=== PATIENT | male | born 1990 | race Caucasian/White ===

== ENCOUNTER 2019-03-28 11:30 | Inpatient (IN) | payer OTHER ==
[~2019-03-28] VITALS: Ht 185.4 cm; Wt 176.4 kg
[2019-03-28] MEDS ORDERED: NS(*) 0.9% 1000 ML BAG 1,000 ML IV ONE (11:32)
[2019-03-28] MEDS ORDERED: DIPHTH/TETANUS/ACEL. PERTUSSIS IM ONE (11:35)
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
[2019-03-28 12:10] LABS: PLATELET COUNT, AUTOMATED 323 K/uL (150-450)
[2019-03-28] MEDS ORDERED: MORPHINE 4 MG/ML SDV IVP ONE ×3 (12:10→14:40)
[2019-03-28 12:20] LABS: INR 1.05
--- NOTE | 2019-03-28 15:28 | RADIOLOGY IMAGING REPORT ---
FACILITY: [facility] [place] PATIENT NAME: Fam Navarro : 1990 MR: [id number] V: [id number] EXAM DATE: ORDERING PHYSICIAN: RICCI AARON TECHNOLOGIST: Location: [facility] Patient: Fam Navarro : 1990 Visit/Account:[id number] Date of Sevice: 03/28/2019 C-SPINE W/O CONTRAST HISTORY: Trauma COMPARISON STUDIES: none TECHNIQUE: Axial images were obtained from the skull base through the upper thoracic spine without i ntravenous contrast. Coronal and sagittal reformatted images were obtained from the axial source data . One of the following dose optimization techniques was utilized in the performance of this exam: aut omated exposure control; adjustment of the mA and/or kv according to patient size; or use of iterativ e reconstruction technique. Specific details can be referenced in the facility's radiology CT exam op erational policy. FINDINGS: Pre-vertebral soft tissues: Negative Fracture/alignment: negative Vertebral bodies: Negative Posterior elements: Negative Disc Spaces: Negative Visualized soft tissues anterior neck: Negative Visualized lung / mediastinum: Negative Other findings: None significant IMPRESSION: 1. Negative for acute fracture or spondylolisthesis. Report Dictated By: Benito Tang MD at 03/28/2019 1:17 PM Report E-Signed By: Benito Tang MD at 03/28/2019 1:19 PM WSN:[id number]
--- NOTE | 2019-03-28 15:29 | RADIOLOGY IMAGING REPORT ---
FACILITY: [facility] [place] PATIENT NAME: Fam Navarro : 1990 MR: [id number] V: [id number] EXAM DATE: ORDERING PHYSICIAN: RICCI AARON TECHNOLOGIST: Location: [facility] [place] Patient: Fam Navarro : 1990 Visit/Account:[id number] Date of Sevice: 03/28/2019 CHEST/AB/PELV W/CONTRAST, L-SPINE W CONTRAST, T-SPINE W CONTRAST HISTORY: Trauma TECHNIQUE: CT imaging was obtained through the chest, abdomen and pelvis with intravenous contrast. 2-D axial, coronal and sagittal small [id number] bone reformatted images were obtained through the thoracic spine and lumbar spine. One of the following dose optimization techniques was utilized in t he performance of this exam: automated exposure control; adjustment of the mA and/or kv according to patient size; or use of iterative reconstruction technique. Specific details can be referenced in the facility's radiology CT exam operational policy. CONTRAST: 75 cc of Isovue-370 COMPARISON: None. FINDINGS: CHEST: Lower neck: Negative. Vessels: Negative. Heart and pericardium: Negative Mediastinum/hilum/lymph nodes: Anterior mediastinal opacity most likely thymus. Lungs/pleura: Mild dependent bibasilar opacities. No pneumothorax or pleural effusion. Right fissura l 4 mm nodule consistent with an intrapulmonary lymph node. Bones/soft tissues: Negative. Other findings: None significant ABDOMEN/PELVIS: Hepatobiliary: Negative. Spleen: Negative. Adrenals: Negative. Pancreas: Negative. Kidneys/ureters/bladder: Negative. Bowel/peritoneum/mesentery: Negative. Vessels: Negative. Lymph nodes: Negative. Pelvic genitourinary: Negative. Bones/soft tissues: Degenerative endplate changes at T11-T12. Other findings: None significant IMPRESSION: 1. Imaging of the chest reveals anterior mediastinal soft tissue with a configuration most consistent with thymic tissue. Mild bibasilar dependent opacities, likely atelectasis. No pneumothorax or pleur al effusion. 2. Imaging of the abdomen and pelvis reveals no evidence of injury to the abdominal organs or free fl uid. 3. Imaging of the bones reveals degenerative endplate changes at T11-T12 Report Dictated By: Benito Tang MD at 03/28/2019 1:19 PM Report E-Signed By: Benito Tang MD at 03/28/2019 1:28 PM WSN:[id number]
--- NOTE | 2019-03-28 15:29 | RADIOLOGY IMAGING REPORT ---
FACILITY: [facility] - [place] PATIENT NAME: Fam Navarro : 1990 MR: [id number] V: [id number] EXAM DATE: ORDERING PHYSICIAN: RICCI AARON TECHNOLOGIST: Location: [facility] - [place] Patient: Fam Navarro : 1990 Visit/Account:[id number] Date of Sevice: 03/28/2019 CHEST/AB/PELV W/CONTRAST, L-SPINE W CONTRAST, T-SPINE W CONTRAST HISTORY: Trauma TECHNIQUE: CT imaging was obtained through the chest, abdomen and pelvis with intravenous contrast. 2-D axial, coronal and sagittal small [id number] bone reformatted images were obtained through the thoracic spine and lumbar spine. One of the following dose optimization techniques was utilized in t he performance of this exam: automated exposure control; adjustment of the mA and/or kv according to patient size; or use of iterative reconstruction technique. Specific details can be referenced in the facility's radiology CT exam operational policy. CONTRAST: 75 cc of Isovue-370 COMPARISON: None. FINDINGS: CHEST: Lower neck: Negative. Vessels: Negative. Heart and pericardium: Negative Mediastinum/hilum/lymph nodes: Anterior mediastinal opacity most likely thymus. Lungs/pleura: Mild dependent bibasilar opacities. No pneumothorax or pleural effusion. Right fissura l 4 mm nodule consistent with an intrapulmonary lymph node. Bones/soft tissues: Negative. Other findings: None significant ABDOMEN/PELVIS: Hepatobiliary: Negative. Spleen: Negative. Adrenals: Negative. Pancreas: Negative. Kidneys/ureters/bladder: Negative. Bowel/peritoneum/mesentery: Negative. Vessels: Negative. Lymph nodes: Negative. Pelvic genitourinary: Negative. Bones/soft tissues: Degenerative endplate changes at T11-T12. Other findings: None significant IMPRESSION: 1. Imaging of the chest reveals anterior mediastinal soft tissue with a configuration most consistent with thymic tissue. Mild bibasilar dependent opacities, likely atelectasis. No pneumothorax or pleur al effusion. 2. Imaging of the abdomen and pelvis reveals no evidence of injury to the abdominal organs or free fl uid. 3. Imaging of the bones reveals degenerative endplate changes at T11-T12 Report Dictated By: Benito Tang MD at 03/28/2019 1:19 PM Report E-Signed By: Benito Tang MD at 03/28/2019 1:28 PM WSN:[id number]
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
[2019-03-28 15:58] VITALS: BP 119/72
[2019-03-28] MEDS ORDERED: HYDROmorphone HCL 2 MG/ML SDV IVP PRN (16:00)
[2019-03-28] MEDS ORDERED: MULT-1027 PO (16:01)
[2019-03-28] MEDS: APAP/HYDROCODONE 325/7.5 TAB PO PRN ×2 (16:31→21:17)
[2019-03-28 19:30] VITALS: BP 111/79
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
[2019-03-28 21:15] VITALS: BP 105/69
[2019-03-28] MEDS ORDERED: ONDANSETRON 4 MG/2 ML VIAL IVP PRN (22:55)
[2019-03-29] VITALS (8 sets, daily range): BP systolic 108–122; BP diastolic 57–83
--- NOTE | 2019-03-29 08:38 | RADIOLOGY IMAGING REPORT ---
FACILITY: PATIENT NAME: Fam Navarro : 1990 MR: [id number] V: [id number] EXAM DATE: [id number] ORDERING PHYSICIAN: JEREMÍAS WASHINGTON TECHNOLOGIST: Location: [facility] [place] Patient: Fam Navarro : 1990 Visit/Account:[id number] Date of Sevice: 03/29/2019 Exam type: CHEST SINGLE AP History: decreased oxygenation, chest pain Comparison: March 28, 2019. Findings: There is been development of a dense airspace consolidation the left lower lobe. Mild linear strandi ng in the right lung base also appears new. The mediastinum appears somewhat widened slightly more p rominent when compared to the prior study. The cardiac silhouette appears mildly enlarged IMPRESSION: 1. Interval development of dense airspace consolidation in the left lower lobe which may represent a telectasis, developing infiltrate or pulmonary contusion Small band of consolidation right lung base likely representing atelectasis Cardiac silhouette appears mildly enlarged increased from the prior study The mediastinum appears widened also increased. This could be projectional in nature however dependi ng upon the clinical presentation a follow-up chest CT with contrast may be helpful. Results were called to JEREMÍAS WASHINGTON at 03/29/2019 8:34 AM. Report Dictated By: Nuzhat Rendon MD at 03/29/2019 8:27 AM Report E-Signed By: Nuzhat Rendon MD at 03/29/2019 8:34 AM WSN:[email or web address]
[2019-03-29 09:27] LABS: PLATELET COUNT, AUTOMATED 249 K/uL (150-450)
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
--- NOTE | 2019-03-29 10:50 | RADIOLOGY IMAGING REPORT ---
FACILITY: [facility] PATIENT NAME: Fam Navarro : 1990 MR: [id number] V: [id number] EXAM DATE: ORDERING PHYSICIAN: PADMAJA SWIFT TECHNOLOGIST: Location: [facility] Patient: Fam Navarro : 1990 Visit/Account:[id number] Date of Sevice: 03/29/2019 CT CHEST (CONTRAST) History: CXR CHANGES TECHNIQUE: Contiguous axial images were performed through the chest to the level of the adrenal gla nds following the administration of IV contrast. Coronal and sagittal reformatting was also perform ed.Dose Lowering Technique One of the following dose optimization techniques was utilized in the performance of this exam: Autom ated exposure control; adjustment of the mA and/or kV according to the patient's size; or use of an i terative reconstruction technique. Specific details can be referenced in the facility's radiology C T exam operational policy. Contrast: 75 mL Isovue-370 COMPARISON STUDIES: CT chest abdomen and pelvis March 28, 2019. Lungs / Pleura: 4 mm intrafissural nodule on the right again noted consistent with an intrapulmonar y lymph node. There is increasing airspace consolidation in the posterior aspect of both lower lobes and the inferior aspect of the lingula likely related to atelectasis, although differential diagnosi s would include pulmonary contusion given the clinical history of trauma or developing infiltrates. Mediastinum/nodes: The anterior mediastinal opacity appears unchanged likely representing thymus. Heart and vessels: Although the study was not performed as a CTA of the thoracic aorta it appears we ll-opacified with no gross evidence of extraluminal extravasation of contrast. Musculoskeletal / Body wall: negative. Upper abdomen: Visualized abdominal viscera negative. IMPRESSION: The anterior mediastinal opacity appears unchanged when compared to the prior study likely representi ng thymus Although the study was not performed as a CTA of the thoracic aorta, the aorta appears well opacified with no evidence of extraluminal extravasation of contrast Increase seen airspace consolidation in the posterior aspect of both lower lobes and inferior aspect the lingula likely related to atelectasis, although the differential diagnosis would include pulmonar y contusion given the clinical history of trauma or developing infiltrates Report Dictated By: Nuzhat Rendon MD at 03/29/2019 10:10 AM Report E-Signed By: Nuzhat Rendon MD at 03/29/2019 10:47 AM WSN:[email or web address]
[2019-03-29] MEDS: cefTRIAXone 2 GM VIAL IVP SCH (12:05)
[2019-03-29] MEDS ORDERED: NS(*) 0.9% 250 ML BAG 250 ML ONE (12:11)
[2019-03-29] MEDS: AZITHROMYCIN(*) 500 MG 500 MG in NS(*) 0.9% 250 ML BAG 250 ML IVPB SCH (12:19)
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
[2019-03-30 03:18] VITALS: BP 116/59
[2019-03-30 07:13] VITALS: BP 109/70
[2019-03-30] MEDS: cefTRIAXone 2 GM VIAL IVP SCH (10:42)
--- NOTE | 2019-03-30 11:01 | Hospitalist Progress Note ---
Subjective Progress Notes Subjective KEEGAN overnight, continues needing high amounts of supplemental O2. Denies any new concerns this am. Physical Exam Vital Signs Date Time Temp Pulse Resp B/P (MAP) Pulse Ox O2 Delivery O2 Flow Rate FiO2 03/30/19 09:25 91 Bi-PAP 90.0 03/30/19 08:32 40.0 03/30/19 07:13 97.8 90 14 109/70 (83) Intake and Output 03/30/19 07:00 Intake Total 760 ml Output Total 2400 ml Balance -1640 ml Intake Oral 500 ml IV Total 260 ml Output Urine Total 2400 ml # Voids 1 General Appearance: Awake, No Acute Distress, Afebrile Neuro: No Gross deficits Cardiovascular: Normal Rhythm & Peripheral Pulses Respiratory: Clear to Auscultation (on BiPAP) GI: Soft and Non-Tender Integumentary: Skin Intact without Lesion / Mass Result Diagram: 03/29/1991603/29/19916 Assessment and Plan Problems: (1) Shortness of breath Status: Acute Assessment & Plan: A repeat chest x-ray showed increased consolidation in the left lower lobe and a widened mediastinum. A limited echo did not reveal a pericardial effusion, but was limited secondary to his size. A repeat CT scan of the chest did not demonstrate any new acute process of the mediastinum, there is interval development of contusion vs infiltrate vs atelectasis. He is on empiric antibiotics due to respiratory difficulties and leukocytosis, though contusion is favored. Element of obesity also impacting respiratory status. Exam Sepsis Risk: Sepsis Risk REANNA SANCHEZ DO March 30, 2019 11:01
[2019-03-30] MEDS: AZITHROMYCIN(*) 500 MG 500 MG in NS(*) 0.9% 250 ML BAG 250 ML IVPB SCH (11:12)
[2019-03-30 13:56] VITALS: BP 124/71
[2019-03-30] MEDS: APAP/HYDROCODONE 325/7.5 TAB PO PRN ×2 (16:45→20:55)
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
[2019-03-30] MEDS: ENOXAPARIN 40 MG/0.4ML SYR SC SCH (17:24)
[2019-03-30 19:05] VITALS: BP 126/62
[2019-03-30 23:02] VITALS: BP 123/73
[2019-03-31 03:54] VITALS: BP 117/71
[2019-03-31 06:26] LABS: PLATELET COUNT, AUTOMATED 241 K/uL (150-450)
[2019-03-31 06:56] VITALS: BP 120/74
--- NOTE | 2019-03-31 08:27 | Hospitalist Progress Note ---
Subjective Progress Notes Subjective This patient was admitted for pulmonary contusion. He has remained on BiPAP over the last 48hrs. Patient Complains of: Cardiovascular: No: Chest Pain Respiratory: No: Shortness of Breath Physical Exam Vital Signs Date Time Temp Pulse Resp B/P (MAP) Pulse Ox O2 Delivery O2 Flow Rate FiO2 03/31/19 07:20 88 Bi-PAP 100.0 03/31/19 06:56 97.8 72 16 120/74 (89) 03/31/19 03:54 Intake and Output 03/31/19 07:00 Intake Total 1115 ml Output Total 2000 ml Balance -885 ml Intake Oral 860 ml IV Total 255 ml Output Urine Total 2000 ml # Voids 1 Cardiovascular: Regular Rate and Rhythm Respiratory: Clear to Auscultation Result Diagram: 03/31/19 0536 03/29/19 0917 Assessment and Plan Problems: (1) Pulmonary contusion Status: Acute Assessment & Plan: His CT scan did show increased consolidation in the lower lungs. He is on supportive treatment with BiPAP. We will try to wean him to nasal canula today. (2) Pneumonia Assessment & Plan: He did have increased shortness of breath on 03/29. A repeat CT scan showed progression of his consolidation bilateral. He was started on empiric treatment with ceftriaxone and azithromycin. (3) ARF (acute respiratory failure) Assessment & Plan: He has required BiPAP as above. Exam Sepsis Risk: No Definite Risk Problem Qualifiers (1) Pulmonary contusion: Encounter type: initial encounter Laterality: bilateral Qualified Codes: S27.322A - Contusion of lung, bilateral, initial encounter PADMAJA SWIFT DO Mar 31, 2019 08:27
--- NOTE | 2019-03-31 09:08 | RADIOLOGY IMAGING REPORT ---
FACILITY: [facility] PATIENT NAME: Fam Navarro : 1990 MR: [id number] V: [id number] EXAM DATE: ORDERING PHYSICIAN: PADMAJA SWIFT TECHNOLOGIST: Location: [facility] - [place] Patient: Fam Navarro : 1990 Visit/Account:[id number] Date of Sevice: 03/31/2019 2 VIEWS CHEST INDICATION: Hypoxia COMPARISON: CT chest dated March 29, 2019. FINDINGS: Heart size within normal limits. Heterogeneous predominantly linear opacities within the lung bases, favored related to atelectasis wh en correlated with the recent CT. Overall no significant change. There is no pneumothorax or pleural effusion. IMPRESSION: 1. Heterogeneous predominantly linear opacities within the lung bases, favored related to atelectasis when correlated with the recent CT, although cannot completely exclude component of pneumonia. Overa ll no significant change. Report Dictated By: Sylvain Bahena MD at 03/31/2019 9:03 AM Report E-Signed By: Sylvain Bahena MD at 03/31/2019 9:05 AM WSN:[id number]
[2019-03-31] MEDS: APAP/HYDROCODONE 325/7.5 TAB PO PRN ×2 (09:09→19:34)
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
[2019-03-31] MEDS: cefTRIAXone 2 GM VIAL IVP SCH (10:21)
[2019-03-31 10:26] VITALS: BP 117/76
[2019-03-31] MEDS: AZITHROMYCIN(*) 500 MG 500 MG in NS(*) 0.9% 250 ML BAG 250 ML IVPB SCH (10:47)
--- NOTE | 2019-03-31 11:06 | Antimicrobial Stewardship ---
Antimicrobial Time Out Antimicrobial Stewardship MD Service: Hospitalist Indications: CAP Antimicrobial Used CAFTRIAXONE IV PUSH AND AZITHROMYCIN 500MG IV QDAY Start Date: March 29, 2019 Culture Results: N/A (NONE DRAWN) Eligible for PO Conversion Eligable for PO Conversion: Yes Reviewed with Provider Reviewed w/ Provider on Rounds: No Comments Comments PATIENT STARTED ON THERAPY FOR CAP, REMAINS AFEBRILE AND WBC COUNT TRENDING DOWNWARD. CAN CONVERT TO PO THERAPY ONCE CLINICALLY IMPROVED. JOSÉ MIGUEL DENNEY Mar 31, 2019 11:06
[2019-03-31 15:22] VITALS: BP 125/81
[2019-03-31] MEDS: ENOXAPARIN 40 MG/0.4ML SYR SC SCH (17:40)
[2019-03-31 19:31] VITALS: BP 109/67
[2019-03-31 23:15] VITALS: BP 106/65
[2019-04-01 02:52] VITALS: BP 138/86
[2019-04-01 07:25] VITALS: BP 126/72
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
[2019-04-01] MEDS: AZITHROMYCIN(*) 500 MG 500 MG in NS(*) 0.9% 250 ML BAG 250 ML IVPB SCH (11:07)
[2019-04-01] MEDS: cefTRIAXone 2 GM VIAL IVP SCH (11:07)
[2019-04-01] MEDS: ENOXAPARIN 40 MG/0.4ML SYR SC SCH (17:50)
[2019-04-01 19:55] VITALS: BP 114/85
[2019-04-01] MEDS: APAP/HYDROCODONE 325/7.5 TAB PO PRN (20:16)
[2019-04-01 23:19] VITALS: BP 136/103
[2019-04-02 00:07] VITALS: BP 136/93
--- NOTE | 2019-04-02 04:30 | NUR ---
Pt in deep sleep. Periods of apnea noted. Sats dropping to 70% on oxygen 8L/high flow NC. Changed pt over to BiPap with FiO2 @ 70%. Tolerating well with sats @ 91--93%.
[2019-04-02 07:06] VITALS: BP 118/77
[2019-04-02] MEDS: APAP/HYDROCODONE 325/7.5 TAB PO PRN (07:46)
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
--- NOTE | 2019-04-02 10:18 | Hospitalist Progress Note ---
Subjective Progress Notes Subjective He reports some minor improvements in pain control and mobility. Physical Exam Vital Signs Date Time Temp Pulse Resp B/P (MAP) Pulse Ox O2 Delivery O2 Flow Rate FiO2 04/02/19 09:45 89 High-Flow Nasal Cannula 10.0 04/02/19 07:10 20 04/02/19 07:06 97.5 93 118/77 (91) 04/02/19 06:26 70.0 Intake and Output 04/02/19 07:00 Intake Total 1000 ml Balance 1000 ml Intake Oral 740 ml IV Total 260 ml # Voids 1 # Bowel Movements 1 General Appearance: Alert, Awake Cardiovascular: Regular Rate and Rhythm Respiratory: Other (diminished breath sounds at bases/no rales or wheezes noted) Extremities: Warm, Perfused Psych: Alert & Oriented X3 Result Diagram: 03/31/19 0536 03/29/19 0917 Monitor Interpretation: Normal Sinus Rhythm Assessment and Plan Problems: (1) Pulmonary contusion Status: Acute Assessment & Plan: His CT scan did show increased consolidation in the lower lungs. He is on supportive treatment with oxygen and BiPAP. He probably has an underlying hypoventilation syndrome/sleep apnea as well. The chest/lung injury and pain medications also would exacerbate as well. Will check ABGs to see if he is hypoxic/hypercarbic and to see if he improves with BiPAP therapy. Would like to see if we could get him set up with BiPAP at the time of discharge. If not, he will need to have sleep study set up as an outpatient very soon. (2) Pneumonia Assessment & Plan: He did have increased shortness of breath on 03/29/19. A repeat CT scan showed progression of the consolidation at the lung bases. He has been started on empiric treatment with IV ceftriaxone and azithromycin. His WBC count has improved. (3) ARF (acute respiratory failure) Assessment & Plan: He has required BiPAP as above. Certainly, the injury, medications, and body habitus are contributing. Exam Sepsis Risk: No Definite Risk Problem Qualifiers (1) Pulmonary contusion: Encounter type: initial encounter Laterality: bilateral Qualified Codes: S27.322A - Contusion of lung, bilateral, initial encounter KAY ROCK MD Apr 02, 2019 10:18
[2019-04-02] MEDS: AZITHROMYCIN(*) 500 MG 500 MG in NS(*) 0.9% 250 ML BAG 250 ML IVPB SCH (11:08)
[2019-04-02] MEDS: cefTRIAXone 2 GM VIAL IVP SCH (11:08)
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
--- NOTE | 2019-04-02 18:42 | Miscellaneous Provider Note ---
Miscellaneous Provider Note Note MRI left knee completed and has revealed lateral collateral ligament high grade tear. I called Dr. Osborne with Ortho who suggested T-scope knee brace and O/P ortho f/u. PADMAJA LEON MD Apr 02, 2019 18:42
[2019-04-02 19:28] VITALS: BP 127/79
[2019-04-02] MEDS ORDERED: ENOXAPARIN 40 MG/0.4ML SYR SC SCH (21:00)
[2019-04-02 23:45] VITALS: BP_SYST 117; BP_SYST 127; BP_DIAS 58; BP_DIAS 79
[2019-04-03 03:47] VITALS: BP 113/65
[2019-04-03 06:23] LABS: PLATELET COUNT, AUTOMATED 294 K/uL (150-450)
[2019-04-03 07:25] VITALS: BP 118/66
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
--- NOTE | 2019-04-03 09:21 | Hospitalist Progress Note ---
Subjective Progress Notes Subjective This patient is admitted for pulmonary contusion. Patient Complains of: Cardiovascular: No: Chest Pain Respiratory: No: Shortness of Breath Physical Exam Vital Signs Date Time Temp Pulse Resp B/P (MAP) Pulse Ox O2 Delivery O2 Flow Rate FiO2 04/03/19 07:25 98.0 88 16 118/66 (83) High-Flow Nasal Cannula 04/03/19 07:25 93 9.0 04/03/19 00:04 70.0 Intake and Output 04/03/19 07:00 Intake Total 240 ml Balance 240 ml Intake Oral 240 ml Cardiovascular: Regular Rate and Rhythm Respiratory: Clear to Auscultation Result Diagram: 04/03/19 0549 04/03/19 0549 Monitor Interpretation: Normal Sinus Rhythm Assessment and Plan Problems: (1) Pulmonary contusion Status: Acute Assessment & Plan: His CT scan did show increased consolidation in the lower lungs. He is on supportive treatment with oxygen and BiPAP. He probably has an underlying hypoventilation syndrome/sleep apnea as well. The chest/lung injury and pain medications also would exacerbate as well. Will check ABGs to see if he is hypoxic/hypercarbic and to see if he improves with BiPAP therapy. Would like to see if we could get him set up with BiPAP at the time of discharge. If not, he will need to have sleep study set up as an outpatient very soon. (2) Pneumonia Assessment & Plan: He did have increased shortness of breath on 03/29/19. A repeat CT scan showed progression of the consolidation at the lung bases. He has been started on empiric treatment with IV ceftriaxone and azithromycin. His WBC count has improved. (3) ARF (acute respiratory failure) Assessment & Plan: He has required BiPAP as above. Certainly, the injury, medications, and body habitus are contributing. (4) Chronic hypercapnic respiratory failure Assessment & Plan: He has had persistent elevation of his CO2 and witnessed apneic events. We have had him on BiPAP with O2 while sleeping and supplemental oxygen through the day. He will require auto BiPAP and oxygen at home until he can have a formal sleep study. (5) Hypoxia Status: Acute Assessment & Plan: He is on oxygen as above. Exam Sepsis Risk: No Definite Risk Problem Qualifiers (1) Pulmonary contusion: Encounter type: initial encounter Laterality: bilateral Qualified Codes: S27.322A - Contusion of lung, bilateral, initial encounter JENIFFERPADMAJA HOPPER DO Apr 03, 2019 09:21
[2019-04-03 10:33] VITALS: Ht 185.4 cm; Wt 176.4 kg
[2019-04-03 10:54] VITALS: BP 121/83
[2019-04-03] MEDS: cefTRIAXone 2 GM VIAL IVP SCH (11:02)
[2019-04-03] MEDS: AZITHROMYCIN(*) 500 MG 500 MG in NS(*) 0.9% 250 ML BAG 250 ML IVPB SCH (11:03)
[2019-04-03] MEDS: APAP/HYDROCODONE 325/7.5 TAB PO PRN (11:03)
[2019-04-03] MEDS ORDERED: Acetaminophen/Hydrocodone PO (12:26)
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
== END 2019-04-03 14:37 | disposition home or self-care (01) | DRG 205 ==
LOC: ER 11:39 → MED 14:39
PROVIDERS: ADMIT Surgery; ATTEND Surgery
PROC: 5A09357 Assistance with Respiratory Ventilation, Less than 24 Consecutive Hours, Continuous Positive Airway Pressure (ICD-10-PCS; principal; 2019-03-29)
DX: S27.322A Contusion of lung, bilateral, initial encounter (principal); J18.9 Pneumonia, unspecified organism; Z68.43 Body mass index [BMI] 50.0-59.9, adult; N17.9 Acute kidney failure, unspecified; J96.12 Chronic respiratory failure with hypercapnia; J96.11 Chronic respiratory failure with hypoxia; F17.210 Nicotine dependence, cigarettes, uncomplicated; D72.829 Elevated white blood cell count, unspecified; E66.9 Obesity, unspecified; S60.511A Abrasion of right hand, initial encounter; R40.2412 Glasgow coma scale score 13-15, at arrival to emergency department; G47.36 Sleep related hypoventilation in conditions classified elsewhere; S83.421A Sprain of lateral collateral ligament of right knee, initial encounter; Z23 Encounter for immunization; V68.5XXA Driver of heavy transport vehicle injured in noncollision transport accident in traffic accident, initial encounter; Y93.89 Activity, other specified; Y92.411 Interstate highway as the place of occurrence of the external cause; Y99.9 Unspecified external cause status
CPT/HCPCS: 36415; 36600; 70450; 71045; 71046; 71260; 72125; 72129; 72132; 72170; 73564; 74177; 80305; 81001; 82040; 82247; 82310; 82374; 82435; 82565; 82803; 82947; 83605; 84075; 84132; 84155; 84295; 84450; 84460; 84520; 85025; 85610; 85730; 90471; 90715; 94010; 94660; 94667; 94668; 96361; 96374; 96376; 99285; J0456; J0696; J1650; J2270; J7030; J7050

== ENCOUNTER → 2019-03-28 | Outpatient (CLI) | payer OTHER ==
[~2019-03-28] MED LIST: Acetaminophen/Hydrocodone PO; MULT-1027 PO
== END ==
LOC: AMB 10:48
PROVIDERS: ATTEND Nurse Practitioner
DX: R07.81 Pleurodynia (principal); M54.2 Cervicalgia
CPT/HCPCS: A0425; A0429